=== PATIENT | male | born 1955 | race African-American/Black ===

== ENCOUNTER 2016-07-15 21:02 | Emergency (ER) | payer SELFPAY ==
[~2016-07-15] VITALS: Ht 172.7 cm; Wt 86.2 kg
[~2016-07-15 21:02] MED LIST: ALBUTEROL SULF8.5 GM INH; AZITHROMYCIN250 MG ORAL; PROMETHAZINE-C118 M1 ORAL
[2016-07-15] MEDS ORDERED: PRILOSEC OTC20 MG ORAL (21:48)
--- NOTE | 2016-07-15 21:50 | Emergency Room Report ---
History of Present Illness General Chief Complaint: Abdominal Pain Source: Patient Present Illness [facility] This is a 60-year-old male with no past medical history. He has no family Dr. He presents with chief complaint of epigastric pain and reflux symptoms for over 2 years. On and off. Worse when he been over. Worse when he eats spicy food. He came in tonight because he was tired of having symptoms. Never followup with anybody. When I saw him he has no symptom. Denies any fever or chills. Denies any nausea vomiting. Has not take anything for this. Denies any chest pain denies any shortness of breath. Denies any diarrhea. Allergies: Coded Allergies: No Known Allergies (Unverified , 07/21/14) Patient History Past Medical History: none, see triage record, old chart reviewed Past Surgical History: none Pertinent Family History: none Social History: Denies: smoking Immunizations: other Reviewed Nursing Documentation: PMH: Agreed, PSxH: Agreed Nursing Documentation-PM Past Medical History: No History, Except For Hx Gastrointestinal Problems: Yes - acid reflux Review of Systems Eye: Denies: blurred vision, eye pain ENT: Denies: ear pain, nose congestion, throat swelling Respiratory: Denies: cough, shortness of breath Cardiovascular: Denies: chest pain, palpitations Gastrointestinal: Denies: abdominal pain, diarrhea, nausea, vomiting Musculoskeletal: Denies: back pain, joint pain Skin: Denies: rash Neurological: Denies: headache, numbness Endocrine: Denies: increased thirst, increased urine Hematologic/Lymphatic: Denies: easy bruising All Other Systems: negative except mentioned in HPI Physical Exam Vital Signs Date Time Temp Pulse Resp B/P Pulse Ox O2 Delivery O2 Flow Rate FiO2 07/15/16 21:20 99.1 68 18 164/101 96 Room Air vitals with hypertension Sp02 EP Interpretation: reviewed, normal General Appearance: well appearing, no apparent distress, alert Head: normocephalic, atraumatic Eyes: bilateral eye EOMI, bilateral eye PERRL ENT: hearing grossly normal, normal pharynx Neck: full range of motion, supple, no meningismus Respiratory: chest non-tender, lungs clear, normal breath sounds Cardiovascular #1: regular rate, rhythm, no murmur Gastrointestinal: normal bowel sounds, non tender, no mass, no organomegaly, no bruit, non-distended Musculoskeletal: back normal, gait/station normal, normal range of motion Psychiatric: mood/affect normal Skin: warm/dry Medical Decision Making Diagnostic Impression: Primary Impression: GERD (gastroesophageal reflux disease) Qualified Codes: K21.9 - Gastro-esophageal reflux disease without esophagitis Additional Impression: Hypertension Qualified Codes: I10 - Essential (primary) hypertension ER Course Patient presents with symptoms consistent with GERD. Differential include esophagitis, ACS, gallbladder disease to name a few. He may have H. pylori. He is to the medic now. Has been ongoing for over 2 years. Discharge home with a PPI grade he may need referral to see a drawing kiln supervisor. Last Vital Signs Date Time Temp Pulse Resp B/P Pulse Ox O2 Delivery O2 Flow Rate FiO2 07/15/16 21:20 99.1 68 18 164/101 96 Room Air Status: unchanged Disposition: HOME, SELF-CARE Condition: Stable Scripts Omeprazole Magnesium (PRILOSEC OTC) 20 Mg Tablet. 20 MG ORAL DAILY, #30 TAB Prov: MOSES OTT M.D. 07/15/16 Patient Instructions: Gastroesophageal Reflux Disease, Adult Additional Instructions: Followup with your DrMontana within 7 days. You may need a referral to see a drawing kiln supervisor for endoscopy. Have your doctor recheck on your blood pressure. Return for worsening of symptoms. MOSES OTT M.D. Jul 15, 2016 21:50
[2016-07-15 22:01] VITALS: BP 154/99
== END 2016-07-15 22:01 | disposition home or self-care (01) ==
LOC: EMR 21:38
DX: K21.9 Gastro-esophageal reflux disease without esophagitis (principal); I10 Essential (primary) hypertension
CPT/HCPCS: 99283